=== PATIENT | female | born 1975 | race Two or more races ===

== ENCOUNTER 2024-03-29 10:22 | Emergency (ER) | payer OTHER, SELFPAY ==
[2024-03-29 10:28] VITALS: BP 121/82
--- NOTE | 2024-03-29 11:31 | ED.MUSCINJ ---
HPI-Injury
General
Chief Complaint: Musculo-Skeletal Complaint
Source: patient
Exam Limitations: none
Time Seen by Provider: 03/29/24 11:20
Nursing documentation reviewed up to this point in time: agreed with
Travel History
Have you had any contact with someone who has COVID-19?: No
Do you have any symptoms of coronavirus? Fever > 100 degrees, chills, cough, shortness of breath, sore throat, loss of taste or smell, muscle aches, or headache?: No
History of Present Illness-Injury
Initial Injury comments:
49-year-old female with no significant past medical history states she was sitting on a bench yesterday holding the leash of her Cocker spaniel when her dog saw another dog, pulled hard hyperextending pt's right arm and elbow struck the bench. She
has had pain and difficulty moving the arm due to pain since.
Past History
Past History
ED Past Medical History: None
ED Past Surgical History: None
Social History
Tobacco: Non-smoker
Alcohol: None
Drug: None
Personal:
Living: with family
Employment: Employed
Family History
Family History: Other (No history of inflammatory bowel disease)
Review of Systems
Review of Systems
Allergies reviewed?: Yes
All Other Systems: ROS reviewed and negative except as documented in HPI and ROS
Musculoskeletal: Reports other (Pain right elbow)
Skin: Reports no symptoms
Musculoskeletal Injury Exam
Musculoskeletal Injury Exam
Right Elbow:
Pain with Movement?: Moderate
Tender to palpation?: Moderate
Soft tissue swelling?: Mild
External deformity and angulation?: None
Contusion?: Moderate
Strain- Sprain- Tear (Connective tissue injury)?: Moderate
Crepitus with movement?: No
Joint instability?: No
Malalignment/deformity?: No
Range of motion: Limited
Distal skin color and temperature: normal-warm & good color
Capillary Refill: normal
Normal distal neurovascular exam?: Yes
Phy Exam
Physical Exam
Physical Exam:
PHYSICAL EXAMINATION:
General: no apparent distress, not acutely ill
Neuro: alert and oriented.
Psychiatric: well kept. interactive and cooperative
Musculoskeletal: Moves with ease
Skin: Warm, pink.
Injury Course
Orders/Labs/Results
Orders:
Orders
03/29/24 10:37
Elbow, Right 3 View [CR Elbow - Right Min 3 Views] Urgent
Comment:
Reason For Exam: right elbow pain hit on park bench yeterday
03/29/24 11:47
Long Arm Right-Treatment ONCE
Sling Right-Treatment ONCE
03/29/24 11:53
Ibuprofen [Motrin] 600 mg PO NOW STA
03/29/24 12:02
Ibuprofen [Motrin] 600 mg .ROUTE .STK-MED ONE
Procedures
Splint Check
Splint checked by provider?: Yes
Circulation/Movement/Sensation post splint application: brisk cap refill and full sensation
MDM/Problems Addressed
Differential Diagnosis Includes:
Sprain elbow, fracture elbow, occult fracture
MDM/Problems Addressed:
49-year-old female with no significant past medical history states she was sitting on a bench yesterday holding the leash of her Cocker spaniel when her dog saw another dog, pulled hard hyperextending pt's right arm and elbow struck the bench. She
has had pain and difficulty moving the arm due to pain since.
Elbow xray initially read by this examiner: No acute abnormality noted
Although x-ray is negative, patient has significant pain about the elbow so we treat conservatively, will splint, give sling and have her follow-up with orthopedics.
*Critical Care Note
Total Time (30-74mins, 75-104mins- exclusive of procedures): Not Applicable
ED Attending Note
-
Portions of this chart may have been created with voice recognition software.� Occasional wrong word or��sound alike� substitutions may have occurred due to the inherent limitations of voice recognition software.
Discharge Plan
Departure
Patient Disposition: Home (Routine Discharge)
Date of Disposition: 03/29/24
Time of Disposition: 11:49
Patient with high blood pressure during this ER visit?: No
Condition: Good
Discharge Problem:
Hyperextension injury of right elbow
Instructions: Sprain (DC), Using Cold for Pain
Prescriptions:
No Action
fexofenadine [Eloise] 60 MG tablet
60 mg PO BID
ranitidine HCl [Acid Control (ranitidine)] 150 MG tablet
150 mg PO BID
zafirlukast 20 MG tablet
20 mg PO BID
docosahexaenoic acid-epa 1 CAP capsule
1 cap PO Daily
diclofenac sodium 75 MG tablet,delayed release (DR/EC)
75 mg PO BID Qty: 10 0RF
diazepam 5 MG tablet
5 mg PO TIDPRN PRN (Reason: muscle spasm) Qty: 10 0RF
cefdinir 300 MG capsule
300 mg PO BID Qty: 19 0RF
hydrocodone-acetaminophen 1 TABLET tablet
1 tab PO Q4HPRN PRN (Reason: pain) Qty: 10 0RF
dicyclomine 20 MG tablet
20 mg PO QIDPRN PRN (Reason: abdominal pain) Qty: 12 0RF
amoxicillin-pot clavulanate 1 TABLET tablet
1 tab PO Q12 Qty: 14 0RF
ondansetron 4 MG tablet,disintegrating
4 mg PO TIDPRN PRN (Reason: nausea/vomiting) Qty: 10 0RF
Referrals:
Abhi Childress MD [Active] - Next open appointment
Luiz Elliott MD [Family Provider] -
Activity Restrictions/Additional Instructions:
As we discussed, wear the splint and the sling until further instruction by the orthopedic doctor. Call today to make an appointment for next week.
Ibuprofen 600 mg, with food, every 6 hours as needed for pain.
Interventions
Interventions:
*Risk Screen - Suicide Last Done: 03/29/24 12:07
*General Assessment Last Done: 03/29/24 12:07
*Neglect/Abuse Screening Last Done: 03/29/24 12:07
ED- Fall Risk Assessment Last Done: 03/29/24 12:14
*ED COVID-19 Vaccine History Last Done: 03/29/24 10:34
*Nursing Disposition Last Done: 03/29/24 12:14
ED-Musculoskeletal Assessment Last Done: 03/29/24 11:13
Discharge Date and Time
Discharge Date/Time: 03/29/24 12:14
Print Language: LITHUANIAN
[2024-03-29] MEDS: MOTRIN 600 MG PO (12:03)
[2024-03-29 12:07] VITALS: BP 128/80
== END 2024-03-29 12:14 | disposition home or self-care (01) ==
LOC: EMR 10:22
PROVIDERS: EMERGENCY PHYSICIAN Emergency Medicine; FAMILY PHYSICIAN Family Medicine
DX: S59.901A Unspecified injury of right elbow, initial encounter (principal); X50.0XXA Overexertion from strenuous movement or load, initial encounter
CPT/HCPCS: 99283; 29105; 73080

== ENCOUNTER → 2024-07-17 09:49 | Outpatient (REF) | payer OTHER, SELFPAY | LOC: HWRAD 09:49 | PROVIDERS: ATTENDING PHYSICIAN Obstetrics & Gynecology Gynecology; FAMILY PHYSICIAN Family Medicine | DX: N92.0 Excessive and frequent menstruation with regular cycle (principal) | CPT/HCPCS: 76830; 76856 ==

== ENCOUNTER → 2024-10-11 07:40 | Outpatient (REF) | payer OTHER, SELFPAY | LOC: MRI 3T 07:40 | PROVIDERS: ATTENDING PHYSICIAN Orthopaedic Surgery; FAMILY PHYSICIAN Family Medicine | DX: S50.01XA Contusion of right elbow, initial encounter (principal) | CPT/HCPCS: 73221 ==

== ENCOUNTER → 2024-12-17 13:00 | Outpatient (REF) | payer OTHER, SELFPAY | LOC: HWWDC 13:00 | PROVIDERS: ATTENDING PHYSICIAN Obstetrics & Gynecology Gynecology; FAMILY PHYSICIAN Family Medicine | DX: Z12.31 Encounter for screening mammogram for malignant neoplasm of breast (principal) | CPT/HCPCS: 77063; 77067 ==

== ENCOUNTER → 2025-01-14 10:17 | Outpatient (REF) | payer OTHER, SELFPAY | LOC: RAD 10:17 | PROVIDERS: ATTENDING PHYSICIAN Physical Medicine & Rehabilitation; FAMILY PHYSICIAN Family Medicine | DX: M25.521 Pain in right elbow (principal) | CPT/HCPCS: 78315; A9503 ==

== ENCOUNTER → 2025-06-23 15:49 | Outpatient (REF) | payer OTHER, SELFPAY ==
[2025-06-23 16:12] LABS: Hematocrit 29.2 % (37.0-47.0); Hemoglobin 9.4 g/dL (12.0-16.0); Mean Corp Hgb Conc. 32.2 g/dL (33.0-37.0); Mean Corpuscular Volume 77.7 fL (81.0-99.0); Nucleated Red Blood Cells % 0 %; Platelet Count 192 10^3/uL (130-400); Red Cell Dist. Width 15.4 % (11.5-14.5)
[2025-06-23 16:30] LABS: Vitamin D, 25-OH*** 62.0 ng/mL (30-80)
== END ==
LOC: OIDL 15:49
PROVIDERS: ATTENDING PHYSICIAN Nurse Practitioner Primary Care
DX: D50.8 Other iron deficiency anemias (principal); E88.09 Other disorders of plasma-protein metabolism, not elsewhere classified; K58.9 Irritable bowel syndrome, unspecified
CPT/HCPCS: 82306; 85025